=== PATIENT | male | born 1960 | race African-American/Black ===

== ENCOUNTER 2016-08-31 04:55 | Emergency (ER) | payer OTHER ==
[2016-08-31] MEDS ORDERED: KETOROLAC TROMETHAMINE 60 MG/2 ML SDV IM ONE (07:16)
--- NOTE | 2016-08-31 08:20 | ER Document Report ---
HPI - HPI Patient complains to provider of: hip pain Onset: Other - tuesday Pain Level: 5 Context: Patient presents emergency department with complaints of right hip pain. He reports he also had left arm pain on Tuesday once when he moved his arm but it went away. He reports he's had this hip pain for the past couple weeks but increased on Tuesday. This morning pain increased. He did not take any OTC medications for the pain. He denies trauma. He denies other symptoms such as fever vomiting diarrhea. 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 He reports pain getting in and out of the truck. 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 IN LAST 30 DAYS: No - RESPIRATORY O2 Sat by Pulse Oximetry: 96 Course - Re-evaluation Re-evalutation: 08/31/16 08:24 Patient instructed on hip x-ray and the patient. Patient also instructed on NSAIDs anti-inflammatory. Patient instructed on the importance of follow-up with his provider Dr. Espinoza for referral to ortho as indicated. He verbalized understanding to all instructions. - Vital Signs Vital signs: Temp Pulse Resp BP Pulse Ox 97.6 F 68 16 141/89 H 96 08/31/16 07:36 08/31/16 07:36 08/31/16 07:36 08/31/16 07:36 08/31/16 07:36 - Diagnostic Test Radiology reviewed: Image reviewed, Reports reviewed - Diagnostic report text EXAM DESCRIPTION: HIP RIGHT AP/LATERAL COMPLETED DATE/TIME: 08/31/2016 7:42 am REASON FOR STUDY: 15-hip pain COMPARISON: None. TECHNIQUE: Two views right hip including AP pelvis LIMITATIONS: None. FINDINGS: No acute fractures identified. A amorphous tendon calcifications seen above the greater trochanter. Joint space at the hip mildly narrowed. Symphysis pubis and SI joints well-maintained. If an occult fracture suspected clinically, consider additional imaging. TECHNICAL DOCUMENTATION: JOB ID: [id number] [employer]- All Rights Reserved RAD/HIP RIGHT AP /LATERAL IMPRESSION: No acute fracture. Tendon calcification Discharge - Discharge Clinical Impression: Right hip pain, Elevated blood pressure reading Condition: Stable Disposition: HOME, SELF-CARE Instructions: Anti-Inflammatory Medication ([facility]), Toradol Injection ([facility]) Additional Instructions: *You have been evaluated for right hip pain, elevated blood pressure reading *The xray showed tendon calcification *Rest/Ice/Elevate *Follow up with primary care provider within one week for recheck and referral to orthopedics as indicated *Take medication as prescribed *Return to ED for worsening condition, changes, needs Prescriptions: Naproxen 500 mg PO BID #20 tablet Forms: Elevated Blood Pressure, Return to Work
[2016-08-31 08:30] VITALS: BP 156/107
== END 2016-08-31 08:41 | disposition home or self-care (01) ==
LOC: ER 04:55
DX: M65.88 Other synovitis and tenosynovitis, other site (principal); M25.551 Pain in right hip; I10 Essential (primary) hypertension
CPT/HCPCS: 99283; 96372; 73502; J1885

== ENCOUNTER 2019-03-27 17:41 | Emergency (ER) | payer OTHER ==
[2019-03-27] MEDS ORDERED: DIPH/PERTUSS(ACELL)/TETANUS VAC/PF 0.5 ML SYR (>=10YO) IM ONE (18:39)
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
--- NOTE | 2019-03-27 19:17 | RADIOLOGY REPORT (SQ) ---
EXAM DESCRIPTION: CT HEAD WITHOUT COMPLETED DATE/TIME: 03/27/2019 7:04 pm REASON FOR STUDY: pain COMPARISON: None. TECHNIQUE: Axial images acquired through the brain without intravenous contrast. Images reviewed wi th bone, brain and subdural windows. Additional sagittal and coronal reconstructions were generated. Images stored on PACS. All CT scanners at this facility use dose modulation, iterative reconstruction, and/or weight based d osing when appropriate to reduce radiation dose to as low as reasonably achievable (ALARA). [facility]: Dose Right [facility]: CareDose [facility]: Dose Right [facility]: Teradose 4D [facility]: Headspace RADIATION DOSE: CT Rad equipment meets quality standard of care and radiation dose reduction techniq ues were employed. CTDIvol: 53.2 mGy. DLP: 1017 mGy-cm. mGy. LIMITATIONS: None. FINDINGS: VENTRICLES: Normal size and contour. CEREBRUM: No masses. No hemorrhage. No midline shift. No evidence for acute infarction. Normal gra y/white matter differentiation. No areas of low density in the white matter. CEREBELLUM: No masses. No hemorrhage. No alteration of density. No evidence for acute infarction. EXTRAAXIAL SPACES: No fluid collections. No masses. ORBITS AND GLOBE: No intra- or extraconal masses. Normal contour of globe without masses. CALVARIUM: No fracture. PARANASAL SINUSES: Mucoperiosteal changes seen in both maxillary sinuses. There is opacification of many of the ethmoid air cells. Mild mucoperiosteal changes is seen in the frontal sinuses. SOFT TISSUES: No mass or hematoma. OTHER: No other significant finding. IMPRESSION: Sinus disease. No acute intracranial imaging findings. EVIDENCE OF ACUTE STROKE: NO. COMMENT: Quality ID # [id number]: Final reports with documentation of one or more dose reduction techniques (e.g., Automated exposure control, adjustment of the mA and/or kV according to patient size, use of iterative reconstruction technique) TECHNICAL DOCUMENTATION: JOB ID: [id number] [employer]- All Rights Reserved Reading location - IP/workstation name: [email or web address]
--- NOTE | 2019-03-27 19:22 | RADIOLOGY REPORT (SQ) ---
EXAM DESCRIPTION: CT CERVICAL SPINE WITHOUT COMPLETED DATE/TIME: 03/27/2019 7:04 pm REASON FOR STUDY: neck pain COMPARISON: None. TECHNIQUE: Axial images acquired through the cervical spine without intravenous contrast. Images re viewed with lung, soft tissue and bone windows. Reconstructed coronal and sagittal MPR images review ed. Images stored on PACS. All CT scanners at this facility use dose modulation, iterative reconstruction, and/or weight based d osing when appropriate to reduce radiation dose to as low as reasonably achievable (ALARA). [facility]: Dose Right [facility]: CareDose [facility]: Dose Right [facility]: Teradose 4D [facility]: Smart [employer] RADIATION DOSE: CT Rad equipment meets quality standard of care and radiation dose reduction techniq ues were employed. CTDIvol: 25.4 mGy. DLP: 558 mGy-cm. mGy. LIMITATIONS: None. FINDINGS: ALIGNMENT: Anatomic. MINERALIZATION: Normal. VERTEBRAL BODIES: No fractures or dislocation. DISCS: Disc spaces are fairly well maintained. There are marginal osteophytes at multiple levels ant eriorly in the spine. FACETS, LATERAL MASSES, POSTERIOR ELEMENTS: No fractures. No dislocation. No acute findings. HARDWARE: None in the spine. VISUALIZED RIBS: No fractures. LUNG APICES AND SOFT TISSUES: Dorsal calcifications are present suggesting prior ligament injury. OTHER: No other significant finding. IMPRESSION: Cervical spondylosis. No acute finding. TECHNICAL DOCUMENTATION: JOB ID: [id number] Quality ID # [id number]: Final reports with documentation of one or more dose reduction techniques (e.g., Au tomated exposure control, adjustment of the mA and/or kV according to patient size, use of iterative reconstruction technique) 2010 [employer]- All Rights Reserved Reading location - IP/workstation name: [email or web address]
--- NOTE | 2019-03-27 19:39 | RADIOLOGY REPORT (SQ) ---
EXAM DESCRIPTION: CT LUMBAR SPINE WITHOUT COMPLETED DATE/TIME: 03/27/2019 7:04 pm REASON FOR STUDY: pain COMPARISON: None. TECHNIQUE: Axial images acquired through the lumbar spine without intravenous contrast. Images revi ewed with lung, soft tissue and bone windows. Reconstructed coronal and sagittal MPR images reviewed . All images stored on PACS. All CT scanners at this facility use dose modulation, iterative reconstruction, and/or weight based d osing when appropriate to reduce radiation dose to as low as reasonably achievable (ALARA). [facility]: Dose Right [facility]: CareDose [facility]: Dose Right [facility]: Teradose 4D [facility]: [employer] RADIATION DOSE: mGy. LIMITATIONS: None. FINDINGS: SEGMENTATION: Normal. No transitional anatomy. ALIGNMENT: Normal. VERTEBRAL BODIES: No fractures. No dislocation. No acute findings. DISCS: No significant protrusions. Study limited by lack of intrathecal contrast. PEDICLES, TRANSVERSE PROCESSES: No fractures. No dislocation. No acute findings. FACETS, POSTERIOR ELEMENTS: No fractures. No dislocation. No spinal stenosis. HARDWARE: None in the spine. VISUALIZED RIBS: No fractures. SOFT TISSUES: No significant or acute finding in adjacent soft tissues. OTHER: No other significant finding. IMPRESSION: NORMAL CT OF THE LUMBAR SPINE. TECHNICAL DOCUMENTATION: JOB ID: [id number] Quality ID # [id number]: Final reports with documentation of one or more dose reduction techniques (e.g., Au tomated exposure control, adjustment of the mA and/or kV according to patient size, use of iterative reconstruction technique) 2010 [employer]- All Rights Reserved Reading location - IP/workstation name: [email or web address]
[2019-03-27] MEDS ORDERED: LIDOCAINE 1% INJ-PF (10 MG/ML) 30 ML SDV INJ ONE (19:40)
[2019-03-27 20:35] LABS: URINE AMPHETAMINES SCREEN NEGATIVE; URINE BARBITURATES SCREEN NEGATIVE; URINE BENZODIAZEPINES SCREEN NEGATIVE; URINE COCAINE SCREEN NEGATIVE; URINE MARIJUANA (THC) SCREEN NEGATIVE; URINE METHADONE SCREEN NEGATIVE; URINE PHENCYCLIDINE SCREEN NEGATIVE
[2019-03-27 21:04] VITALS: BP 173/110
== END 2019-03-27 21:00 | disposition home or self-care (01) ==
LOC: ER 17:41
DX: S01.311A Laceration without foreign body of right ear, initial encounter (principal); S16.1XXA Strain of muscle, fascia and tendon at neck level, initial encounter; S30.0XXA Contusion of lower back and pelvis, initial encounter; M54.2 Cervicalgia; M54.5 Low back pain; R51 Headache; V85.5XXA Driver of special construction vehicle injured in nontraffic accident, initial encounter; I10 Essential (primary) hypertension
CPT/HCPCS: 99284; 90471; 80307; 70450; 72125; 72131; 90715; 12013; J3490

== ENCOUNTER 2019-04-01 12:46 | Emergency (ER) | payer OTHER ==
[2019-04-01 12:59] VITALS: BP 195/105
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
== END 2019-04-01 13:50 | disposition home or self-care (01) ==
LOC: ER 12:46
DX: M54.5 Low back pain (principal); S01.311D Laceration without foreign body of right ear, subsequent encounter; V85 Occupant of special construction vehicle injured in transport accident

== ENCOUNTER 2019-06-11 10:58 | Emergency (ER) | payer OTHER ==
[2019-06-11 11:05] VITALS: BP 164/87
[2019-06-11] MEDS ORDERED: KETOROLAC TROMETHAMINE 60 MG/2 ML SDV IM ONE (11:28)
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
== END 2019-06-11 11:50 | disposition home or self-care (01) ==
LOC: ER 10:58
DX: M54.5 Low back pain (principal); F17.200 Nicotine dependence, unspecified, uncomplicated; I10 Essential (primary) hypertension
CPT/HCPCS: 99283; 96372; J1885

== ENCOUNTER → 2019-12-03 | Outpatient (CLI) | payer OTHER ==
--- NOTE | 2019-12-03 10:20 | RADIOLOGY REPORT (SQ) ---
EXAM DESCRIPTION: MRI CERVICAL SPINE WITHOUT IMAGES COMPLETED DATE/TIME: 12/03/2019 10:01 am REASON FOR STUDY: M54.2 CERVICALGIA M54.2 CERVICALGIA COMPARISON: CT from last year. TECHNIQUE: Sagittal and Axial imaging includes T1, T2, STIR and gradient echo sequences. LIMITATIONS: None. FINDINGS: ALIGNMENT: Normal. VERTEBRAE: Intact. BONE MARROW: Normal. No marrow replacement or reactive changes. HARDWARE: None in the spine. CORD AND BASE OF BRAIN: Normal in size and signal intensity. SOFT TISSUES: No soft tissue masses. C1-C2: No significant spinal stenosis. C2-C3: No significant spinal stenosis or exit foraminal stenosis. C3-C4: No significant spinal stenosis or exit foraminal stenosis. C4-C5: Minimal left uncovertebral spurring with slight left foraminal encroachment. C5-C6: No significant spinal stenosis or exit foraminal stenosis. C6-C7: No significant spinal stenosis or exit foraminal stenosis. C7-T1: Mild left foraminal narrowing. UPPER THORACIC: Incompletely imaged. No significant spinal stenosis or exit foraminal stenosis. OTHER: No other significant finding. IMPRESSION: 1. Cervical spondylosis is mild. No evidence of central spinal stenosis. No large disc bulges or he rnias or critical foraminal narrowing. 2. No fracture or malalignment. No worrisome bone lesions or cord lesions detected. TECHNICAL DOCUMENTATION: JOB ID: [id number] 2010 [employer]- All Rights Reserved Reading location - IP/workstation name: [email or web address]
== END ==
LOC: RAD 08:50
PROVIDERS: ATTEND Physician Assistant
DX: M47.812 Spondylosis without myelopathy or radiculopathy, cervical region (principal); M54.2 Cervicalgia
CPT/HCPCS: 72141